=== PATIENT | male | born 1955 | race Caucasian/White ===

== ENCOUNTER 2017-01-11 07:02 | Day surgery (SDC) | payer MEDICAID ==
[~2017-01-11 07:02] MED LIST: ADVAIR 100-501 EACH IH; ADVAIR 50028 BLISTE1 INH; ASPIRIN81 M1 PO; ATORVASTATIN CA80 M1 PO; CARVEDILOL6.25 M1 PO; CLOPIDOGREL75 M1 PO; COMBIVENT RESPIM4 G1 INH; DOBUTAMINE; FLOMAX0.4 M1 PO; GLYBURIDE5 M1 PO; IBUPROFEN200 M2 PO; JANUMET 50-1,01 EACH PO; JANUMET XR 50-1 EAC3 PO; LASIX40 M1 PO; LISINOPRIL10 M1 PO; NICODERM CQ1 EAC1 TD; NORCO 5-325 TA1 EACH PO; PROTONIX20 M2 PO; SPIRIVA18 MC1 IH; TYLENOL325 M2 PO; ULTRAM50 M1 PO
[2017-01-11 07:41] LABS: BASO % 0.5 % (0-2); EOS % 2.4 % (0-7); EOSINOPHIL ABSOLUTE COUNT 0.2 tho/cmm (0.0-0.7); HCT-HEMATOCRIT 34.3 % (36.0-53.5); HGB-HEMOGLOBIN 9.6 gm/dl (13.5-17.0); IMMATURE GRANULOCYTES ABSOLUTE 0.02 tho/cmm (0-0.03); IMMATURE GRANULOCYTES PERCENT 0.3 % (0-0.3); MCH (MEAN CORPUSCULAR HGB) 20.5 pg (28.0-32.0); MCV (MEAN CELL VOLUME) 73.1 fl (82.0-96.0); MONO % 6.8 % (0-12); MONOCYTE ABSOLUTE COUNT 0.5 tho/cmm (0.0-1.2); PLATELET COUNT 103 tho/cmm (150-450); RED BLOOD COUNT 4.69 mil/cmm (4.40-5.70); RED CELL DISTRIBUTION WIDTH 22.5 % (12.4-16.4); WHITE BLOOD COUNT 7.8 tho/cmm (4.0-10.0)
[2017-01-11 07:48] LABS: ANION GAP 12 mmol/L (0-20); BLOOD UREA NITROGEN 13 mg/dl (6-24); CALCIUM 9.2 mg/dl (8.5-10.5); CARBON DIOXIDE-VENOUS 29 mmol/L (22-32); CHLORIDE 105 mmol/l (96-110); GLUCOSE 82 mg/dL (70-110); POTASSIUM 4.3 mmol/L (3.7-5.1); SODIUM 142 mmol/L (135-145); eGFR VALUE FOR BLACK >90 mL/Min
== END 2017-01-12 11:00 ==
LOC: ENDOS 07:02 → SHSB 07:05
PROVIDERS: Anesthesiology
PROC: 0DBE8ZX Excision of Large Intestine, Via Natural or Artificial Opening Endoscopic, Diagnostic (ICD-10-PCS; principal; 2017-01-11)
PROC: 0DBK8ZX Excision of Ascending Colon, Via Natural or Artificial Opening Endoscopic, Diagnostic (ICD-10-PCS; 2017-01-11)
PROC: 0DBN8ZX Excision of Sigmoid Colon, Via Natural or Artificial Opening Endoscopic, Diagnostic (ICD-10-PCS; 2017-01-11)
PROC: 0W3P8ZZ Control Bleeding in Gastrointestinal Tract, Via Natural or Artificial Opening Endoscopic (ICD-10-PCS; 2017-01-11)
PROC: 0DB98ZX Excision of Duodenum, Via Natural or Artificial Opening Endoscopic, Diagnostic (ICD-10-PCS; 2017-01-11)
DX: D12.2 Benign neoplasm of ascending colon (principal); D12.5 Benign neoplasm of sigmoid colon; K31.9 Disease of stomach and duodenum, unspecified; Z79.899 Other long term (current) drug therapy; Z86.010 Personal history of colon polyps